=== PATIENT | male | born 2000 | race Caucasian/White ===

== ENCOUNTER 2018-06-19 19:37 | Emergency (ER) | payer OTHER ==
[~2018-06-19] VITALS: Ht 185.4 cm; Wt 66.8 kg
[2018-06-19] MEDS ORDERED: KETOROLAC TROMETHAMINE 10 MG TAB PO ONE (23:15)
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
[2018-06-20 00:40] VITALS: BP 115/55
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
--- NOTE | 2018-06-20 10:52 | ED PDOC ---
Post-Departure Follow-Up ft neal rey faxed formal report of ct c spine for fu Sherrell De La Paz MD Jun 20, 2018 10:52
--- NOTE | 2018-06-20 10:53 | ED PDOC ---
Post-Departure Follow-Up ct head faxed formal report of ct head mlg Sherrell Martinez MD Jun 20, 2018 10:53
== END 2018-06-20 01:08 | disposition home or self-care (01) ==
LOC: M ED 19:37
DX: S06.0X0A Concussion without loss of consciousness, initial encounter (principal); S13.4XXA Sprain of ligaments of cervical spine, initial encounter; S43.401A Unspecified sprain of right shoulder joint, initial encounter; V48.5XXA Car driver injured in noncollision transport accident in traffic accident, initial encounter; Y92.410 Unspecified street and highway as the place of occurrence of the external cause

== ENCOUNTER → 2018-07-15 | Outpatient (CLI) | payer OTHER ==
[~2018-07-15] MED LIST: PROHANCE 279.3MG/ML 15ML VIAL (A9576) As Ordered ONE
--- NOTE | 2018-07-15 17:13 | REP ---
MRI brain without and with intravenous gadolinium: History: Low density structure seen in the right temporal lobe on CT study from June 19, 2018. MRI recommended. Technique: Axial and sagittal imaging planes are utilized for T1 and T2-weighted scans. Sequences include spin-echo, fast spin echo, FLAIR, and diffusion weighted sequences. 13 mL of intravenous ProHance is administered. MRI findings: MR images confirm the presence of a 17 x 6 x 10 mm cystic structure in the medial aspect of the temporal lobe adjacent to the hippocampus on the right side. This corresponds to the low-density area seen on CT. It follows CSF signal intensity on all sequences and sagittal and coronal images suggest continuity with the temporal horn of the lateral ventricle. This may be a diverticulum of the lateral ventricle or a small subarachnoid cyst. There is no surrounding edema. There is no associated contrast enhancement. Diffusion weighted scans show no evidence of restricted diffusion to suggest acute ischemia. There is no evidence of intracranial hemorrhage. Ventricular system is otherwise normal. No intracranial mass lesion is seen. There is no evidence of significant paranasal sinus disease. No intraorbital abnormality is seen. Impression: 17 mm cystic structure at the medial aspect of the right temporal lobe consistent with a benign cyst versus a diverticulum of the lateral ventricle. No acute intracranial lesion. Electronically Signed by David Beckett MD 07/15/2018 10:33 P
== END ==
LOC: M RAD 13:32
PROVIDERS: ATTEND Family Medicine
DX: G93.0 Cerebral cysts (principal)
CPT/HCPCS: 70553; A9576